=== PATIENT | female | born 1990 | race Caucasian/White ===

== ENCOUNTER 2018-07-01 08:28 | Inpatient (IN) | payer OTHER ==
[~2018-07-01] VITALS: Ht 160 cm; Wt 3.2 kg
[2018-07-01] MEDS ORDERED: PRENATAL TABLE1 EAC2 PO (10:22)
== END 2018-07-04 18:00 | disposition home or self-care (01) | DRG 788 ==
LOC: OB/GYN 08:28 → LDR 08:28 → OB/GYN 07-02 01:07
PROVIDERS: Obstetrics & Gynecology
PROC: 4A1HXCZ Monitoring of Products of Conception, Cardiac Rate, External Approach (ICD-10-PCS; 2018-07-01)
PROC: 10D00Z1 Extraction of Products of Conception, Low, Open Approach (ICD-10-PCS; principal; 2018-07-01 23:00)
DX: O62.0 Primary inadequate contractions (principal); Z3A.40 40 weeks gestation of pregnancy; Z37.0 Single live birth